=== PATIENT | female | born 1960 | race Caucasian/White ===

== ENCOUNTER 2019-03-03 17:14 | Observation (INO) ==
[2019-03-03] MEDS ORDERED: Naloxone 0.4 MG/ML INJ IVP PRN (21:42)
[2019-03-03] MEDS ORDERED: D5% in Water 1,000 ML IVC PRN (21:53)
[2019-03-03] MEDS ORDERED: Dextrose Gel 15 GM/37.5 ML TUBE PO PRN ×2 (21:53)
[2019-03-03] MEDS ORDERED: *HR* Dextrose 50 % in Water (Syg) 50 ML SYRINGE IVP PRN (21:53)
[2019-03-03] MEDS: traZODone 50 MG TABLET PO SCH (22:31)
--- NOTE | 2019-03-03 22:41 | Internal Med History&Physical ---
Date of Encounter: 03/03/19 Time of Encounter: 21:00 Internal Medicine - H&P: HPI Chief complaint: Chest pain Admitted From: Hospital to Hospital Transfer Plans for Post Hospital Care: Home History of present illness: Ms. Nimesh Sanderson is a 58 year old female with past medical history significant for CAD with stents 3, hypertension, hyperlipidemia, diabetes, Crohn's, IBS, chronic back pain, GERD, hiatal hernia, osteoporosis, cervical cancer, and depression who presents as hospital transfer from [facility] where she was admitted on 03/02/18 for chest and abdominal pain. Reports she has been having intermittent squeezing chest pain across her chest since Friday that improved with rest and was worse with exertion. States pain also radiated down her left arm and into her left jaw. The pain was associated with shortness of breath, nausea, and diaphoresis. Patient was seen by cardiology at the [facility] who recommended transfer to [facility] for further evaluation by [facility] and possible heart catheterization. Sending facility reported EKG as sinus rhythm with no acute changes. Cardiac workup while at [facility] included no EKG changes and negative cardiac enzyme's, however patient has presented similarly in the past with negative workup and ended up having significant CAD on [facility] requiring stenting, with most recent being done at [facility] in June 2018. Also had CT angiogram completed at [facility] which showed no CT evidence of pulmonary embolism, non specific noncalcified pulmonary nodules measuring less than 6mm recommending optional follow up CT at 12 months for high risk patients. Continues to have similar chest pain with minimal exertion but is pain free at rest. Also complained of left lower quadrant abdominal pain with diarrhea over past several days as well. Was seen by Mobile Battery Technician while at the [facility] who completed a CT of the abdomen and pelvis which he reported as being unremarkable showing only subtle urothelial enhancement of the bilateral ureters left greater than right recommending clinical correlation with urinalysis. Gastroenterology recommended obtaining stool studies for persistent diarrhea and following up as outpatient. Patient denies any blood in her stool, reports improvement in her abdominal pain, but reports continued diarrhea. Sending facility obtained CBC, CMP, UA, and troponin which were all unremarkable. Currently denies any headache, numbness, tingling, chest pain, shortness of breath, cough, abdominal pain, or bladder changes. Checks her blood sugars regularly and reports they have been averaging in the 80's. Reports following regularly with her PCP, Cardiology, and Gastroenterology. Past Med Surg Social Fam HX - Past Medical History Medical history: cancer, coronary artery disease, diabetes, GERD, hyperlipidemia, hypertension, osteoporosis, other Additional medical history: Crohns, Chronic back pain, Cervical cancer, IBS, Hiatal hernia Psychiatric history: depression - Past Surgical History Surgical History: angioplasty/stent, cholecystectomy, hysterectomy Additional surgical history: cardiac stents x3 - Social History Smoking Status: Former smoker Smokeless Tobacco Status: No Alcohol use: none Drug use: none - Family History Father Cause of : [place] Hx Family Cardiac Disorders: Yes Internal Medicine - H&P: Meds Losartan [Cozaar] 25 mg PO DAILY 12/18/15 [History] Sertraline [Zoloft] 50 mg PO HS 12/18/15 [History] metFORMIN [Glucophage] 1,000 mg PO BID 12/18/15 [History] Nitroglycerin 0.3 mg SL Q8H PRN 12/19/15 [History] Omeprazole [PriLOSEC] 40 mg PO DAILY 12/19/15 [History] Promethazine HCl 12.5 mg PO TID PRN 12/19/15 [History] Aspirin [Lo-Dose Aspirin EC] 81 mg PO DAILY 06/18/18 [History] Clopidogrel Bisulfate [Plavix] 75 mg PO DAILY #30 tablet 06/18/18 [Rx] Insulin Regular U-500 [HumuLIN R U-500] 80 unit SQ BID 06/18/18 [History] Isosorbide MONOnitrate (24 HR) [Imdur] 30 mg PO DAILY 06/18/18 [History] [place]-3 Acid Ethyl Esters [Lovaza] 1 gm PO BID 06/18/18 [History] Rosuvastatin [Crestor] 20 mg PO HS 06/18/18 [History] Tramadol HCl [Ultram] 50 mg PO QID PRN 06/18/18 [History] traZODone [TraZODone] 150 mg PO HS 06/18/18 [History] Allergy/AdvReac Type Severity Reaction Status Date / Time metoprolol Allergy Hives Verified 06/18/18 06:48 codeine AdvReac See Unverified 12/05/15 15:16 Comments lisinopril AdvReac See Unverified 12/05/15 15:16 Comments Penicillins [PCN] AdvReac See Unverified 12/05/15 15:16 Comments Sulfa (Sulfonamide AdvReac See Unverified 12/05/15 15:16 Antibiotics) Comments valsartan [From Diovan] AdvReac See Unverified 12/05/15 15:16 Comments All Systems PM: A 10-system review of systems was performed and is negative for pertinent findings except as documented above in the HPI. - Constitutional Vitals: Temp Pulse Resp BP Pulse Ox 98.4 F 74 16 110/68 97 03/03/19 18:52 03/03/19 18:52 03/03/19 18:52 03/03/19 18:52 03/03/19 18:52 Exam: General: Alert and oriented. Skin:Normal color, no rash, no lesions. HEENT:Pupils equal, round and reactive. Cardiovascular:Normal S1 & S2, no rubs, murmurs or gallops. No JVD. Pulse regular. Lungs:Breath sounds decreased, no wheezes or crackles. Abdomen:Soft, non-tender, no rigidity. Hyperactive bowel sounds. Extremities:No deformity, no edema or tenderness, no joint swelling or clubbing. Neurological:Normal cognition and motor skills. Pulses:Carotid and radial pulses normal +2. Rest of the physical exam is non contributory. - Assessment and Plan (1) Chest pain Current Visit: Yes Status: Acute Assessment and plan: Reports intermittent squeezing chest pain across her chest since Friday that improves with rest and exacerbates on exertion. Reports pain radiates down her left arm and into left jaw and is associated with shortness of breath, nausea, and diaphoresis. Sending facility reported EKG as sinus rhythm with no acute changes and normal cardiac enzymes. Seen by Cardiology at sending facility who recommended transfer for evaluation by [facility] and possible heart catheterization as she has presented similarly in the past with negative workup and ended up having significant CAD on [facility] requiring stenting. Most recent stenting in June 2018 with one stent placed in PDA at [facility]. Currently pain free while at rest. Serial troponins ordered. Continuous cardiac monitoring. Cardiology consult ordered, will need called in a.m. Qualifiers: Qualified Code(s): R07.9 - Chest pain, unspecified (2) Diarrhea Current Visit: Yes Status: Acute Assessment and plan: Acute on chronic. Reports diarrhea over past several days. Was seen by Mobile Battery Technician while at the [facility] who completed a CT of the abdomen and pelvis which he reported as being unremarkable showing only subtle urothelial enhancement of the bilateral ureters left greater than right recommending clinical correlation with urinalysis. Gastroenterology recommended obtaining stool studies for persistent diarrhea and following up as outpatient. Order stool studies if diarrhea persists. Qualifiers: Diarrhea type: unspecified type Qualified Code(s): R19.7 - Diarrhea, unspecified (3) Abdominal pain Current Visit: Yes Status: Acute Assessment and plan: Acute on chronic. Currently improved at this time. Likely secondary to diarrhea. Plan as stated above. Qualifiers: Abdominal location: left lower quadrant Qualified Code(s): R10.32 - Left lower quadrant pain (4) Diabetes mellitus Current Visit: Yes Status: Chronic Assessment and plan: Hold home diabetic medications. Sliding scale insulin ordered. Accu-Chek's ordered. Qualifiers: Qualified Code(s): E11.9 - Type 2 diabetes mellitus without complications (5) Hypertension Current Visit: Yes Status: Chronic Assessment and plan: Continue home medications once verified. Qualifiers: Hypertension type: unspecified Qualified Code(s): I10 - Essential (primary) hypertension (6) Depression Current Visit: Yes Status: Chronic Assessment and plan: Continue home medications once verified. Qualifiers: Qualified Code(s): F32.9 - Major depressive disorder, single episode, unspecified - Time Spent With Patient Total time spent is greater than 50% in coordination of care (as documented) at patient's floor/unit and/or counseling patient:
[2019-03-03 23:15] LABS: White Blood Count 5.6 K/mcL (4.3-11.1)
[2019-03-03 23:16] LABS: Basophils % 0.2 %; Eosinophils # 0.1 K/mcL (0.0-0.6); Eosinophils % 1.1 %; Hematocrit 34.5 % (35.3-44.9); Hemoglobin 11.5 g/dL (11.5-15.4); Immature Granulocytes % 0.2 % (0-4); Lymphocytes # 1.9 K/mcL (0.6-4.6); Lymphocytes % 33.7 %; Mean Corpuscular HGB Conc 33.3 g/dL (31.6-35.5); Mean Corpuscular Hemoglobin 30.6 pg (28.0-33.3); Mean Corpuscular Volume 91.8 fL (83.0-100.0); Mean Platelet Volume 9.6 fL (9.4-12.4); Monocytes # 0.4 K/mcL (0.0-1.3); Monocytes % 7.4 %; Neutrophils # 3.2 K/mcL (1.6-8.9); Platelet Count 154 K/mcL (140-400); Red Blood Count 3.76 M/mcL (3.82-4.97); Red Cell Distribution Width 13.4 % (11.5-14.5); Segmented Neutrophils % 57.4 %
[2019-03-03 23:35] LABS: Alanine Aminotransferase 35 Units/L (7-52); Albumin 3.8 g/dL (3.5-5.7); Albumin/Globulin Ratio 1.9 (1.1-2.2); Alkaline Phosphatase 48 Units/L (34-104); Aspartate Amino Transferase 27 Units/L (13-39); BUN/Creatinine Ratio 17 (6-26); Bilirubin,Total 0.4 mg/dL (0.3-1.0); Blood Urea Nitrogen 9 mg/dL (6-20); Calcium 8.9 mg/dL (8.6-10.3); Carbon Dioxide 26 mEq/L (23-29); Chloride 105 mEq/L (98-107); Glucose 325 mg/dL (70-105); Osmolality,Calculated 297 (280-300); Potassium 3.6 mEq/L (3.5-5.1); Sodium 138 mEq/L (136-145); Total Protein 5.8 g/dL (6.4-8.9); eGFR For African Americans > 60 (> 60); eGFR For Non-African Americans > 60 (> 60)
[2019-03-04] MEDS: Insulin LISPRO 300 UNITS/3 ML VIAL SQ SCH ×4 (02:08→17:54)
--- NOTE | 2019-03-04 10:52 | Cardiology Consult Note ---
<Igor Hernandez - Last Filed: 03/04/19 10:48> Date of Encounter: 03/04/19 Time of Encounter: 10:00 Assessment and Plan (1) Chest pain Current Visit: Yes Status: Acute C/o chest pain similar to previous angina prior to stent 06/2018 to the [facility]. Troponin negative x3. EKG shows SR with no acute ST changes, Notes she is intolerant to imdur due to headaces. Denies NTG SL use due to expiration. We discussed Ranexa indication, use, SE. She agrees to start. Restart home meds including plavix, asa, statin, and carvedilol. Check TTE. Further recommendation to follow. Qualifiers: Qualified Code(s): R07.9 - Chest pain, unspecified (2) CAD (coronary artery disease) Current Visit: Yes Status: Acute H/o CAD S/p PCI to [facility] . Moderate CAD including 60% stenosis mLAD remaining. EF 55%. LHC completed at that time for persistent angina. Continue medical therapy and close monitoring. Healthy heart diet and exercise. Qualifiers: Coronary Disease-Associated Artery/Lesion type: [place] artery [place] vs. transplanted heart: [place] heart Associated angina: with unstable angina Qualified Code(s): I25.110 - Atherosclerotic heart disease of [place] coronary artery with unstable angina pectoris Discussion w patient/family: The assessment and plan as outlined above was discussed with the patient and/or family members who expressed understanding and agreement. All questions were answered. Thank you for involving us in the care of your patient. Please call with any questions. History of Present Illness Consult date: 03/04/19 Requesting physician: Karlene Moya Consult reason: chest pain Chief complaint: chest pain similair to previous angina History of present illness: Ms. Nimesh Sanderson is a 58 year old female with past medical history significant for CAD s/p PCI to the [facility] 06/2018, HTN, HLD, DM type II, tobacco use, chron's disease, and previosuly cervical cancer who presents with chest and abdominal pain. Symptoms started friday. C/o abdominal pain, nausea, and diarrhea. C/o intermittent midsternal chest pain that lasts couple minutes at rest or with exertion. She did not take NTG due to hers being . C/o allergy to metoprolol in past. Was recently started on carvedilol although patient cannot recal. C/o headaches with imdur. Past Med Surg Social Fam HX - Past Medical History Medical history: cancer, coronary artery disease, diabetes, GERD, hyperlipidemia, hypertension, osteoporosis, other Additional medical history: Crohns, Chronic back pain, Cervical cancer, IBS, Hiatal hernia Psychiatric history: depression - Past Surgical History Surgical History: angioplasty/stent, cholecystectomy, hysterectomy Additional surgical history: cardiac stents x3 - Social History Smoking Status: Former smoker Smokeless Tobacco Status: No Alcohol use: none Drug use: none - Family History Father Cause of : [place] Hx Family Cardiac Disorders: Yes Medications and Allergies Losartan [Cozaar] 25 mg PO DAILY 12/18/15 [History] Sertraline [Zoloft] 50 mg PO HS 12/18/15 [History] metFORMIN [Glucophage] 1,000 mg PO BID 12/18/15 [History] Nitroglycerin 0.3 mg SL Q8H PRN 12/19/15 [History] Omeprazole [PriLOSEC] 40 mg PO DAILY 12/19/15 [History] Promethazine HCl 12.5 mg PO TID PRN 12/19/15 [History] Aspirin [Lo-Dose Aspirin EC] 81 mg PO DAILY 06/18/18 [History] Clopidogrel Bisulfate [Plavix] 75 mg PO DAILY #30 tablet 06/18/18 [Rx] Isosorbide MONOnitrate (24 HR) [Imdur] 30 mg PO DAILY 06/18/18 [History] [place]-3 Acid Ethyl Esters [Lovaza] 2 cap PO BID 06/18/18 [History] Rosuvastatin [Crestor] 20 mg PO HS 06/18/18 [History] Tramadol HCl [Ultram] 50 mg PO QID PRN 06/18/18 [History] traZODone [TraZODone] 150 mg PO HS PRN 06/18/18 [History] Carvedilol 3.125 mg PO BID 03/04/19 [History] Dicyclomine [Bentyl] 10 mg PO HS 03/04/19 [History] Subcutaneous Insulin Pump [T:Slim] 1 each AD 03/04/19 [History] Allergy/AdvReac Type Severity Reaction Status Date / Time metoprolol Allergy Hives Verified 06/18/18 06:48 codeine AdvReac See Verified 03/04/19 02:10 Comments lisinopril AdvReac See Verified 03/04/19 02:10 Comments Penicillins [PCN] AdvReac See Verified 03/04/19 02:10 Comments Sulfa (Sulfonamide AdvReac See Verified 03/04/19 02:10 Antibiotics) Comments valsartan [From Diovan] AdvReac See Verified 03/04/19 02:10 Comments All Systems Review: The remainder of the systems were reviewed and are negative Physical Examination Vital Signs, Last 4 Hours Temp Pulse Resp BP Pulse Ox 03/04/19 07:01 98.1 F 86 15 119/61 95 General: Conversant, No Apparent Distress HEENT: Atraumatic, Normocephaly, Mucus Membranes Moist Neck: No JVD, Normal carotid pulses Cardiac: Reg Rate and Rhythm, Normal S1 and S2, No Murmur Lungs: Normal Breath Sounds, No Wheeze, Rales, Rhonchi Neuro: Alert and responsive, No focal deficits noted Abdomen: Soft, Non-Tender Skin: No rashes noted on visualized skin Musculoskeletal: No Chest Wall Tenderness Extremities: No Clubbing, No Cyanosis, No Edema, Normal Pulses Results 03/03/19 22:58 03/03/19 22:58 Lab Results 03/03/19 03/03/19 03/03/19 22:58 22:58 22:58 WBC 5.6 Hgb 11.5 Hct 34.5 L Plt Count 154 Sodium 138 Potassium 3.6 Chloride 105 Carbon Dioxide 26 BUN 9 Creatinine 0.53 L Glucose 325 H Calcium 8.9 Total Bilirubin 0.4 AST 27 ALT 35 Alkaline Phosphatase 48 Troponin I < 0.03 03/04/19 03:51 WBC Hgb Hct Plt Count Sodium Potassium Chloride Carbon Dioxide BUN Creatinine Glucose Calcium Total Bilirubin AST ALT Alkaline Phosphatase Troponin I < 0.03 - Imaging and Cardiology Echo: pending - EKG Interpretation EKG results cardiology: personally reviewed Consult Discharge Plan - Plan Referrals: [facility] [Primary Care Provider] - <Herson Phillips - Last Filed: 03/04/19 12:21> Date of Encounter: 03/04/19 - Attending Attestation I have personally performed a face to face evaluation on this patient. I have reviewed and agree with the care plan. History and Exam by me shows: Known CAD, PCI in June. MICHELLE negative. Would attempt more aggressive medical mgmt. If recurrent chest pain consider left heart cath. Assessment and Plan Discussion w patient/family: The assessment and plan as outlined above was discussed with the patient and/or family members who expressed understanding and agreement. All questions were answered. Thank you for involving us in the care of your patient. Please call with any questions. History of Present Illness History of present illness: Ms. Nimesh Sanderson is a 58 year old female All Systems Review: The remainder of the systems were reviewed and are negative Physical Examination Vital Signs, Last 4 Hours Temp Pulse Resp BP Pulse Ox 03/04/19 11:46 98.1 F 78 15 123/61 97 Results 03/03/19 22:58 03/03/19 22:58 Lab Results 03/03/19 03/03/19 03/03/19 22:58 22:58 22:58 WBC 5.6 Hgb 11.5 Hct 34.5 L Plt Count 154 Sodium 138 Potassium 3.6 Chloride 105 Carbon Dioxide 26 BUN 9 Creatinine 0.53 L Glucose 325 H Calcium 8.9 Total Bilirubin 0.4 AST 27 ALT 35 Alkaline Phosphatase 48 Troponin I < 0.03 03/04/19 03/04/19 03:51 10:14 WBC Hgb Hct Plt Count Sodium Potassium Chloride Carbon Dioxide BUN Creatinine Glucose Calcium Total Bilirubin AST ALT Alkaline Phosphatase Troponin I < 0.03 < 0.03
[2019-03-04] MEDS ORDERED: Nitroglycerin 0.4 MG TAB.SUBL SL PRN (11:17)
[2019-03-04] MEDS: Ranolazine 500 MG TAB.ER.12H PO SCH ×2 (12:13→21:15)
[2019-03-04] MEDS: Aspirin Enteric Coated 81 MG Tablet PO SCH (12:13)
[2019-03-04] MEDS: *HR* OxyCODONE/APAP 5/325 TABLET PO PRN ×2 (12:13→19:51)
--- NOTE | 2019-03-04 15:34 | Internal Med Progress Note ---
Hospitalist Progress Note - Encounter Date of Encounter: 03/04/19 Time of Encounter: 11:00 - Subjective Interval History: Pt was seen and examined at bed side. She denied any active CP now.. However she still have intermittent CP. - Exam Vitals: Temp Pulse Resp BP Pulse Ox 98.1 F 78 15 123/61 97 03/04/19 11:46 03/04/19 11:46 03/04/19 11:46 03/04/19 11:46 03/04/19 11:46 Exam: Gen: Alert, awake, Oriented to time,place and person Chest: Diminished breath sounds B/L, No wheezing, No crackles, No rales Heart: S1S2+ RRR No murmurs Abd: Soft, NT, BS +, No organomegaly Ext: No edema, pulses are palpable, No calf tenderness Neuro : No acute focal neuro deficits noticed Skin: No rash. - Assessment and Plan (1) Chest pain Current Visit: Yes Status: Acute Assessment and Plan: So far negative serial troponin Cont ASA, Plavix, Coreg and Imdur Started her on Ranexa too Since pt is keep having CP, Card recommend possible LHC In AM (2) Diarrhea Current Visit: Yes Status: Acute Assessment and Plan: Resolved (3) Abdominal pain Current Visit: Yes Status: Acute Assessment and Plan: Currently improved at this time (4) Diabetes mellitus Current Visit: Yes Status: Chronic Assessment and Plan: on ADA diet on ISS Held PO Meds (5) Hypertension Current Visit: Yes Status: Chronic Assessment and Plan: Continue home medications (6) Depression Current Visit: Yes Status: Chronic Assessment and Plan: Continue home medications - Time Spent with Patient Total time spent is greater than 50% in coordination of care (as documented) at patient's floor/unit and/or counseling patient: Internal Medicine: Result - Labs CBC & Chem 7: 03/03/19 22:58 03/03/19 22:58 Labs: Short CBC 03/03/19 Range/Units 22:58 WBC 5.6 (4.3-11.1) K/mcL Hgb 11.5 (11.5-15.4) g/dL Hct 34.5 L (35.3-44.9) % Plt Count 154 (140-400) K/mcL Neutrophils # 3.2 (1.6-8.9) K/mcL BMP 03/03/19 22:58 Sodium 138 Potassium 3.6 Chloride 105 Carbon Dioxide 26 BUN 9 Creatinine 0.53 L Glucose 325 H Calcium 8.9 Cardiac Enzymes 03/03/19 03/04/19 03/04/19 Range/Units 22:58 03:51 10:14 Troponin I < 0.03 < 0.03 < 0.03 (< 0.04) ng/mL Liver Function 03/03/19 Range/Units 22:58 Total Bilirubin 0.4 (0.3-1.0) mg/dL AST 27 (13-39) Units/L ALT 35 (7-52) Units/L Alkaline Phosphatase 48 (34-104) Units/L Albumin 3.8 (3.5-5.7) g/dL Consult Discharge Plan - Plan Referrals: [facility] [Primary Care Provider] - (1) Chest pain Qualifiers: Qualified Code(s): R07.9 - Chest pain, unspecified (2) Diarrhea Qualifiers: Diarrhea type: unspecified type Qualified Code(s): R19.7 - Diarrhea, unspecified (3) Abdominal pain Qualifiers: Abdominal location: left lower quadrant Qualified Code(s): R10.32 - Left lower quadrant pain (4) Diabetes mellitus Qualifiers: Qualified Code(s): E11.9 - Type 2 diabetes mellitus without complications (5) Hypertension Qualifiers: Hypertension type: essential hypertension Qualified Code(s): I10 - Essential (primary) hypertension (6) Depression Qualifiers: Qualified Code(s): F32.9 - Major depressive disorder, single episode, unspecified
[2019-03-04] MEDS ORDERED: Insulin LISPRO 300 UNITS/3 ML VIAL SQ SCH (21:00)
[2019-03-04] MEDS: traZODone 50 MG TABLET PO SCH (21:17)
[2019-03-05] MEDS: Insulin LISPRO 300 UNITS/3 ML VIAL SQ SCH ×2 (08:52→11:46)
[2019-03-05] MEDS ORDERED: Isosorbide MONOnitrate (24 HR) 30 MG TAB.ER.24H PO SCH (09:00)
[2019-03-05] MEDS: Ranolazine 500 MG TAB.ER.12H PO SCH (09:02)
[2019-03-05] MEDS: Aspirin Enteric Coated 81 MG Tablet PO SCH (09:02)
--- NOTE | 2019-03-05 09:20 | Event Note ---
Date of Encounter: 03/05/19 Time of Encounter: 09:17 - Cardiology Event Note Mrs. Nimesh Sanderson continues to have chest pain despite addition of Ranexa. States imdur causes migraines. Chest pain this morning with ambulating to bathroom and washing. Chest pain improved with rest. Pt concerned about low blood pressure. Losartan held. Unable to change carvedilol to metoprolol due to allergy. Continue asa, plavix, statin, bb. LHC vs continued medical management discussed. She agrees to proceed with [facility] for further evaluation. R/B/A of [facility] reviewed. Pt voiced understanding. CHADS2-VASC Score - Score Sex: Female Hypertension history: Yes Vascular disease history: Yes Diabetes history: Yes Score: 4 HAS-BLED Score - Score Medication usage predisposing to bleeding: Antiplatelet agents, NSAIDs, Anticoagulants Score: 1
[2019-03-05] MEDS ORDERED: *HR* Midazolam HCl 2 MG/2 ML VIAL ONE (09:21)
[2019-03-05] MEDS ORDERED: Nitroglycerin 1,000 MCG/10 ML VIAL IV ONE (09:21)
[2019-03-05] MEDS ORDERED: *HR* Heparin 10,000 UNIT/10 ML VIAL ONE (09:21)
[2019-03-05] MEDS ORDERED: Heparin 1,000 UNITS/500 mL 500 ML ONE (09:21)
[2019-03-05] MEDS ORDERED: Iopamidol 125 ML INFUS..BTL ONE (09:21)
[2019-03-05] MEDS ORDERED: 0.9 % Sodium Chloride 1,000 ML ONE (09:21)
--- NOTE | 2019-03-05 09:34 | Pre-Sedation Evaluation ---
Pre-sedation evaluation - Pre-sedation checklist Date of procedure: 03/05/19 Procedure: [facility] Recent Vitals: Last Vital Signs Temp 98.0 F 03/05/19 07:24 Pulse 73 03/05/19 07:24 Resp 16 03/05/19 07:24 BP 110/63 03/05/19 07:24 Pulse Ox 96 03/05/19 07:24 H&P (including ROS) documented in medical record: Yes Previous reaction to sedatives/anesthetics: No Dietary Status: NPO after Midnight Airway Assessment: Patient can open mouth completely, TMJ function normal Dentition: No loose teeth or bridges Possible difficult airway: No ASA Classification *see protocol: CLASS II-Mild systemic disease Plan of Care: Pt appropriate candidate for procedure/moderate/conscious sedation Cardiac Registry (Cardio Only) - Functional Capacity Functional Capacity: >=4 METS with symptoms - Clincal Frailty Scale Clinical Frailty Scale: Well
[2019-03-05] MEDS ORDERED: Acetaminophen 325 MG TABLET PO PRN (10:16)
--- NOTE | 2019-03-05 10:16 | Event Note ---
Date of Encounter: 03/05/19 Time of Encounter: 10:15 - Cardiology Event Note Cath Completed LVEF 60% RCA: prox and mid diffuse 25-30%, No distal stent restenosis. LCA: mild diffuse disease Recommend Non cardaic evaluation
--- NOTE | 2019-03-05 10:30 | Invasive Diagnostic Lab Proc ---
Name: Hermelinda Worthington Date of Study: 03/05/2019 Date: 1960 Ht: 63.0in Medical Record#: [id number] Age: 58 Wt: 151.90lb Gender: Female BSA: 1.72 Order #: [id number] BMI: 26.91 Physicians Procedure Physician: Gavin Gutierrez MD Referring MD: Referring MD: Staff Name Position Time In Ashley Liz RT (R) Monitor 09:45 AM Jef Milan RN Customer Service Attendant 09:45 AM Joanne Rivers RT (R) Scrub 09:46 AM Melania Loredo RT (R) Monitor 09:49 AM Procedures Performed Procedure L HRT ARTERY/VENTRICLE ANGIO Pre-Procedure Checklist Informed consent is complete signed and on chart. H&P is on chart. ID band is on and ID verified with patient. Patient NPO for procedure The procedure was described for the patient and questions were answered. ECG is on chart. Rhythm: NSR Plan of Care Patient will tolerate the procedure without complications. Adequate level of comfort will be maintained. Hemodynamics will remain stable Patient will recover from procedure without complications. Respiratory function will be maintained. Cardiac rhythm will remain stable. Patient temperature will be maintained. Patient and/or family have verbalized understanding of the procedure. Patient Education Chief Complaint/Reason for Test: Cardiac Cath Developmental Category: Adult (18-64 years) Developmentally Appropriate for Age: Yes Learning Barriers: None Education Needs: Procedure Education Method: Verbal Information Taught: Cardiac Cath Educational Evaluation: Able to repeat information Intravenous Access Time IV Size Location DC'd Fluid/Drip Rate Units RN 09:35 AM 20g 1 /" Patent On Arrival Rt Antecubital 0.9NaCl 25 ml/hr Jef Milan RN Allergies valsartan Penicillin SULFA (sulfonamide) codeine lisinopril Penicillins Sulfa (Sulfonamide Antibiotics) metoprolol Vital Signs Time BP (mmHg) HR (bpm) O2 Sat. RR (bpm) LOC 09:46 AM / % 5 = Fully awake and oriented or at pre-proc level 09:46 AM / % 4 = Oriented but drowsy 09:48 AM 139 / 82 82 94 % 14 09:53 AM 127 / 70 104 99 % 12 09:58 AM 126 / 77 89 98 % 15 10:03 AM 116 / 71 91 96 % 12 10:08 AM 118 / 73 88 97 % 15 Procedural Medications Time Medication Dose Units Method Given By 09:46 AM Oxygen 2 L/min nasal cannula Jef Milan RN 09:50 AM Versed 2 mg Intravenous Jef Milan RN 09:57 AM Lidocaine 2% 2 ml Subcutaneous Gavin Gutierrez MD 09:57 AM Heparin 4000 units Nitroglycerin 200 mcg Verapamil 2.5 mg Intraarterial Gavin Gutierrez MD ASA Classification: CLASS II- Mild systemic disease (i.e. well-controlled diabetes, hypertension, asthma, cigarette smoking) Ian Score Preprocedure Postprocedure Activity 2- Moves 4 extremities sustained head lift Activity 2- Moves 4 extremities sustained head lift Circulation 2- SBP +/= 20 points of pre-anesthetic level Circulation 2- SBP +/= 20 points of pre-anesthetic level Consciousness 2- Awake and alert oriented x 3 Consciousness 2- Awake and alert oriented x 3 O2 Saturation 2- Able to maintain O2 satruation of 92% on room air O2 Saturation 2- Able to maintain O2 satruation of 92% on room air Respiratory 2- Able to deep breathe and cough well Respiratory 2- Able to deep breathe and cough well Total Score 10 Total Score 10 Contrast Agent: Isovue Diagnostic Contrast: 85 ml Total Contrast: 85 ml Fluoro Dose: 13 mGy Procedure Log Time Note Enter By 09:45 AM 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 Informed consent was obtained. twilson 09:45 AM ASA Class CLASS II- Mild systemic disease (i.e. well-controlled diabetes, hypertension, asthma, cigarette smoking) twilson 09:45 AM Case Delayed no twilson 09:45 AM Ashley Liz RT (R) Position: Monitor Time in: 09:45 twilson 09:46 AM Jef Milan RN Position: Customer Service Attendant Time in: 09:45 twilson 09:46 AM Joanne Rivers RT (R) Position: Scrub Time in: 09:46 twilson 09:46 AM Time: :46 Patient comfortable and pain free: Yes twilson :46 AM Time: :46LOC: 5 = Fully awake and oriented or at pre-proc level twilson :46 AM Time: :46 Oxygen on at 2 L/min per nasal cannula by Jef Milan RN [facility] 09:47 AM CathStat 09:47 AM Vitals capture started with the following parameters, Patient=Adult, Interval=5 min, Initial Lhvjizzj=953 mmHg, Deflation Rate=3 mmHg, Cuff placed on Right Arm 09:48 AM HR=82 bpm, TDLW=495/82 mmhg, SpO2=94.0 %, Resp=14 B/min 09:49 AM Recorded ECG: HR=85 Condition=Condition 1 09:49 AM Procedure start :49 twilson 09:49 AM Hair removed from procedure site in procedure lab using clippers. Right wrist and Right groin prepped with Chloraprep by Melania Loredo (R), then patient was draped. Skin intact. twilson :49 AM Melania Loredo RT (R) Position: Monitor Time in: :49 twilson 09:50 AM Time: 09:50 Versed 2 mg Intravenous Given by Jef Milan RN twilson :53 AM ZX=295 bpm, PERE=695/70 mmhg, SpO2=99.0 %, Resp=12 B/min 09:54 AM Time out was performed according to hospital policy. Conscious sedation and anesthesia was achieved (see medication log with in this report above) twilson :56 AM Pressure channel 2 zeroed. :57 AM Time: 09:57 2 ml Lidocaine 2% to right radial Subcutaneous Given by Gavin Gutierrez MD twilson 09:57 AM Access obtained by percutaneous puncture. 5/6Fr 10cm Terumo [place] sheath placed in right Radial artery. [id number] twilson :57 AM Time: 09:57 Patient given 4,000 units Heparin, 200 mcg Nitroglycerin, and 2.5 mg Verapamil Intraarterial by Gavin Gutierrez MD. This is given to reduce risk of vessel spasm and thrombosis. twilson 09:58 AM HR=89 bpm, FGUB=556/77 mmhg, SpO2=98.0 %, Resp=15 B/min 09:59 AM 5Fr FL 3.5 catheter inserted over the wire [id number] twilson 10:00 AM Wire removed twilson 10:00 AM Recorded Pressure: Ao, HR=97, Condition=Condition 1 (Aorta) Ao 107/72/87 10:00 AM LCA angiography performed in multiple views. twilson 10:01 AM Recorded Pressure: Ao, HR=97, Condition=Condition 1 (Aorta) Ao 117/76/94 10:01 AM Time: 09:46LOC: 4 = Oriented but drowsy twilson 10:01 AM Time: 09:46 Patient comfortable and pain free: Yes twilson 10:02 AM Wire reinserted. twilson 10:03 AM Catheter removed twilson 10:03 AM 5Fr FR 4 catheter inserted over the wire [facility] twilson 10:03 AM HR=91 bpm, GHOE=802/71 mmhg, SpO2=96.0 %, Resp=12 B/min 10:04 AM Wire removed twilson 10:04 AM RCA angiography performed in multiple views. twilson 10:04 AM Recorded Pressure: Ao, HR=89, Condition=Condition 1 (Aorta) Ao 128/78/100 10:06 AM Recorded Pressure: LV, HR=73, Condition=Condition 1 (Left Ventricle) LV 129/15/19 10:06 AM Recorded Pressure: LV, HR=87, Condition=Condition 1 (Left Ventricle) LV 127/15/20 10:06 AM Recorded Pressure: LV, Ao, HR=90, Condition=Condition 1 (Left Ventricle) LV 129/6/10, (Aorta) Ao 116/63/86 10:06 AM Wire reinserted. twilson 10:06 AM Catheter removed twilson 10:07 AM 5Fr Pigtail catheter inserted over the wire [facility] twilson 10:07 AM Catheter crossed the aortic valve and was selectively placed in the left ventricle. Pressures recorded on pullback for left heart catheterization. twilson 10:07 AM Wire removed twilson 10:07 AM Bolus angiogram of left Ventricle complete: 10 ml/sec for a total of 10 mls twilson 10:07 AM Wire reinserted. twilson 10:07 AM Catheter removed twilson 10:07 AM Wire removed twilson 10:07 AM Procedure completed at 10:07 03/05/2019 twilson 10:07 AM Did you address CARI flow and Dominance? YesCoronary Dominance: right twilson 10:07 AM Isovue 370 - 125ml,1 Bottle(s) used. twilson 10:08 AM HR=88 bpm, DDTI=898/73 mmhg, SpO2=97.0 %, Resp=15 B/min 10:10 AM Sign out completed: Radiation Dose 147.72 mGy, 12.7 Gy/cm2 Fluoro Time: 1.4 Isovue 370 - 200ml contrast 85 ml given by Gavin Gutierrez MD. Complications: None. 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 Sedation minutes 20. Cardiac Rehab Consult needed: No. Confirmed administered medications: Yes twilson 10:10 AM Arterial sheath pulled, Vasc Band closure device used and was Successful S/N. twilson 10:10 AM 11 ml air in Vasc Band. twilson 10:10 AM Estimated Blood Loss: minimal twilson 10:10 AM Post ECG NSR twilson 10:10 AM Post Blood Pressure 118/73 twilson 10:10 AM 10:10 Post Pulses Bilateral DP & PT 2+ twilson 10:10 AM 10:10 Post Pulses Bilateral radial 2+ twilson 10:10 AM Information taught Cardiac Cath and Vasc Band twilson 10:11 AM Education needs Procedure, Plan of Care, and Responsibilities of Patient in Care twilson 10:11 AM Learning barriers :None twilson 10:11 AM Education Methods Verbal twilson 10:11 AM Education evaluation Able to repeat information twilson 10:11 AM Site status No bleeding/ No Hematoma - Rt Wrist as reported by Joanne Rivers RT (R) at 10:11 twilson 10:11 AM Delay to floor No twilson 10:11 AM Family placed in consult room. twilson 10:12 AM Vitals capture stopped. 10:14 AM Lesion found in Proximal RCA. Pre Stenosis: 25 Pre CARI Flow: twilson 10:14 AM Lesion found in Mid RCA. Pre Stenosis: 30 Pre CARI Flow: twilson 10:14 AM Lesion found in Distal RCA. Pre Stenosis: 20 Pre CARI Flow: twilson 10:14 AM Lesion found in Proximal LAD. Pre Stenosis: 30 Pre CARI Flow: twilson 10:14 AM Lesion found in Ramus. Pre Stenosis: 25 Pre CARI Flow: twilson 10:16 AM Report given to Rose ALVAREZ Pt taken to Room #46. 10:16 twilson 10:16 AM Patient out of room: 10:16 twilson Complications Complication None Hemodynamics Pressures Site Systolic/A Wave Diastolic/V Wave Mean AO 107 72 87 AO 117 76 94 AO 128 78 100 LV 129 15 19 LV 127 15 20 LV 129 6 10 AO 116 63 86 Post Procedure Information Blood Pressure: 118/73 mmHg Rhythm: NSR Post procedural instructions were given Closure Device Time Device Success/Fail 03/05/2019 10:11:00 AM Mechanical Compression Successful Site Checks Time Location Status Staff Sheath In? Note 10:11 AM Rt Wrist No bleeding/ No Hematoma Joanne Rivers RT (R) Pulses Time Site Pre-Procedure Post-Procedure Note 03/05/2019 9:35:00 AM Bilateral DP & PT 2+ 03/05/2019 9:35:00 AM Bilateral radial 2+ 10:10:00 AM Bilateral DP & PT 2+ 10:10:00 AM Bilateral radial 2+ Updated by Ashley Liz, RT (R) on 03/05/2019 10:19:27 AM electronically signed on 03/05/2019 10:20:32 AM with status of Final
--- NOTE | 2019-03-05 11:32 | Discharge Summary ---
- NOTES TO OUTPATIENT PROVIDER Notes to Outpatient Provider: Follow up with PCP in one week. Follow-up with cardiology in 2 weeks. Medication changes : start taking Ranexa 500mg PO BID Date of Encounter: 03/05/19 Time of Encounter: 11:27 - Discharge Diagnosis (1) Chest pain Priority: Primary Status: Acute Qualifiers: Qualified Code(s): R07.9 - Chest pain, unspecified (2) CAD (coronary artery disease) Priority: Secondary Status: Acute Qualifiers: Coronary Disease-Associated Artery/Lesion type: [place] artery [place] vs. transplanted heart: [place] heart Associated angina: with unstable angina Qualified Code(s): I25.110 - Atherosclerotic heart disease of [place] coronary artery with unstable angina pectoris (3) Diarrhea Priority: Secondary Status: Acute Qualifiers: Diarrhea type: unspecified type Qualified Code(s): R19.7 - Diarrhea, unspecified (4) Diabetes mellitus Priority: Secondary Status: Chronic Qualifiers: Qualified Code(s): E11.9 - Type 2 diabetes mellitus without complications (5) Hypertension Priority: Secondary Status: Chronic Qualifiers: Hypertension type: essential hypertension Qualified Code(s): I10 - Essential (primary) hypertension (6) Depression Priority: Secondary Status: Chronic Qualifiers: Qualified Code(s): F32.9 - Major depressive disorder, single episode, unspecified Hospital course: Ms. Nimesh Sanderson is a 58 year old female with past medical history significant for CAD with stents 3, hypertension, hyperlipidemia, diabetes, Crohn's, IBS, chronic back pain, GERD, hiatal hernia, osteoporosis, cervical cancer, and depression who presented to our hospital as transfer from [facility] where she was admitted on 03/02/18 for chest and abdominal pain. Pt reported she has been having intermittent squeezing chest pain across her chest since Friday that improved with rest and was worse with exertion. She was admitted in the hospital and placed her on bus driver/monitor. Her serial troponin came back as negative. EKG did not show any acute ischemic changes. She had s/p PCI to the RPDA 06/2018, pt stated everytime when she goes to the hospital with CP all her initial work up comes back negative, however she ended up of getting PCI x 3, so she was concerned about her CP this time too. She was evaluated by tankman, who did LHC today. Her LHC showed LVEF 60%, RCA: prox and mid diffuse 25-30%, No distal stent restenosis. LCA: mild diffuse disease. So recommend to continue current medical management and started her on Ranexa 500mg PO BID. Will discharge her home in a stable condition today - Time Spent with Patient Total time spent providing and/or coordinating discharge services: - Discharge Medications Prescriptions: New Ranolazine [Ranexa] 500 mg PO BID #60 tab.er.12h Continued Sertraline [Zoloft] 50 mg PO HS metFORMIN [Glucophage] 1,000 mg PO BID Losartan [Cozaar] 25 mg PO DAILY Promethazine HCl 12.5 mg PO TID PRN PRN Reason: Nausea Omeprazole [PriLOSEC] 40 mg PO DAILY Nitroglycerin 0.3 mg SL Q8H PRN PRN Reason: Chest Pain Isosorbide MONOnitrate (24 HR) [Imdur] 30 mg PO DAILY traZODone [TraZODone] 150 mg PO HS PRN PRN Reason: Sleep Rosuvastatin [Crestor] 20 mg PO HS Aspirin [Lo-Dose Aspirin EC] 81 mg PO DAILY Tramadol HCl [Ultram] 50 mg PO QID PRN PRN Reason: Pain Mongo-3 Acid Ethyl Esters [Lovaza] 2 cap PO BID Clopidogrel Bisulfate [Plavix] 75 mg PO DAILY #30 tablet Subcutaneous Insulin Pump [T:Slim] 1 each MC AD Carvedilol 3.125 mg PO BID Dicyclomine [Bentyl] 10 mg PO HS Home Medications: Losartan [Cozaar] 25 mg PO DAILY 12/18/15 [History] Sertraline [Zoloft] 50 mg PO HS 12/18/15 [History] metFORMIN [Glucophage] 1,000 mg PO BID 12/18/15 [History] Nitroglycerin 0.3 mg SL Q8H PRN 12/19/15 [History] Omeprazole [PriLOSEC] 40 mg PO DAILY 12/19/15 [History] Promethazine HCl 12.5 mg PO TID PRN 12/19/15 [History] Aspirin [Lo-Dose Aspirin EC] 81 mg PO DAILY 06/18/18 [History] Clopidogrel Bisulfate [Plavix] 75 mg PO DAILY #30 tablet 06/18/18 [Rx] Isosorbide MONOnitrate (24 HR) [Imdur] 30 mg PO DAILY 06/18/18 [History] Mongo-3 Acid Ethyl Esters [Lovaza] 2 cap PO BID 06/18/18 [History] Rosuvastatin [Crestor] 20 mg PO HS 06/18/18 [History] Tramadol HCl [Ultram] 50 mg PO QID PRN 06/18/18 [History] traZODone [TraZODone] 150 mg PO HS PRN 06/18/18 [History] Carvedilol 3.125 mg PO BID 03/04/19 [History] Dicyclomine [Bentyl] 10 mg PO HS 03/04/19 [History] Subcutaneous Insulin Pump [T:Slim] 1 each MC AD 03/04/19 [History] Ranolazine [Ranexa] 500 mg PO BID #60 tab.er.12h 03/05/19 [Rx] Allergies/Adverse Reactions: Allergy/AdvReac Type Severity Reaction Status Date / Time metoprolol Allergy Hives Verified 06/18/18 06:48 codeine AdvReac See Verified 03/04/19 02:10 Comments lisinopril AdvReac See Verified 03/04/19 02:10 Comments Penicillins [PCN] AdvReac See Verified 03/04/19 02:10 Comments Sulfa (Sulfonamide AdvReac See Verified 03/04/19 02:10 Antibiotics) Comments valsartan [From Diovan] AdvReac See Verified 03/04/19 02:10 Comments Date of admission: 03/03/19 18:19 Primary care physician: PCP [place] Consults: 03/03/19 21:49 Consult to Cardiology [CONS] Routine Comment: Consulting Provider: [facility] Reason for Consult: Transfer from [facility] for chest pain. Cardiology there recommended transfer for further evaluation by [facility]. Follows with Dr Majano. Had heart cath with stent x1 at [facility] in June 2018. Workup with cardiac enzymes and EKG at [facility] negative so far, but has previous history of normal workup and abnormal heart cath. Call Completed: No - Constitutional Vitals: Temp Pulse Resp BP Pulse Ox 97.9 F 84 16 106/58 97 03/05/19 11:17 03/05/19 11:20 03/05/19 11:20 03/05/19 11:20 03/05/19 11:20 General appearance: Present: cooperative, A&O X 3, no acute distress, answers questions appropriately Exam: Gen: Alert, awake, Oriented to time,place and person Chest: Diminished breath sounds B/L, No wheezing, No crackles, No rales Heart: S1S2+ RRR No murmurs Abd: Soft, NT, BS +, No organomegaly Ext: No edema, pulses are palpable, No calf tenderness Neuro : No acute focal neuro deficits noticed Skin: No rash. - Patient Status Disposition: Home, Self-Care Condition: Good Overall status at discharge: patient is back to baseline - Discharge Instructions [facility] Care Provider[facility] - Gavin Gutierrez MD [Partnered Physician] - - Diet and Activity Activity: increase activity as tolerated Diet: low salt diet
--- NOTE | 2019-03-05 13:37 | Event Note ---
Date of Encounter: 03/05/19 Time of Encounter: 13:36 - Cardiology Event Note No intervention indicated on LHC. Continue medical management and work up for non-cardiac causes of chest pain. Continue ranexa. Out-pt f/u scheduled with Dr. Majano.
[2019-03-05 13:42] VITALS: BP 98/54
== END 2019-03-05 15:19 | disposition home or self-care (01) ==
LOC: 3BNU → SUATTDRO 18:19
PROVIDERS: ADMIT Internal Medicine; ATTEND Family Medicine